=== PATIENT | female | born 1975 | race Caucasian/White ===

== ENCOUNTER 2021-12-05 16:05 | Outpatient (CLI) | payer BC ==
[2021-12-05 17:33] LABS: Free T4 (Free Thyroxine) 1.13 ng/dL (0.70-1.48); Thyroid Stimulating Hormone 1.4572 uIU/mL (0.35-4.94)
[2021-12-05 20:04] LABS: Albumin (w/Testosterone Panel) 4.2 g/dL
[2021-12-05 20:29] LABS: Sex Hormone Binding Globulin 70.6 nmol/L (34-148)
[2021-12-06 07:37] LABS: SARS-CoV-2 PCR by NAA Not Detected (NotDetected)
== END 2021-12-05 16:06 | disposition home or self-care (01) ==
LOC: CSHLAB 16:05
PROVIDERS: ATTEND Internal Medicine Gastroenterology
DX: Z01.812 Encounter for preprocedural laboratory examination (principal); Z20.822 Contact with and (suspected) exposure to COVID-19; Z12.11 Encounter for screening for malignant neoplasm of colon
CPT/HCPCS: 82627; 84270; 84403; 84439; 84443; 84481; U0003; U0005

== ENCOUNTER 2021-12-10 08:25 | Day surgery (SDC) | payer BC ==
[2021-12-04 14:32] VITALS: BMI 28.0
[2021-12-10] MEDS ORDERED: Lidocaine 1% MPF 2 ML VIAL ONE (09:52)
[2021-12-10] MEDS ORDERED: PROPOFOL 40 ML ONE (11:09)
== END 2021-12-10 12:20 | disposition home or self-care (01) ==
LOC: CSHSDC 08:25
PROVIDERS: ATTEND Internal Medicine Gastroenterology
PROC: 0DBP8ZZ Excision of Rectum, Via Natural or Artificial Opening Endoscopic (ICD-10-PCS; principal; 2021-12-10)
PROC: 0DBN8ZZ Excision of Sigmoid Colon, Via Natural or Artificial Opening Endoscopic (ICD-10-PCS; principal; 2021-12-10)
DX: Z12.11 Encounter for screening for malignant neoplasm of colon (principal); K63.5 Polyp of colon; K62.1 Rectal polyp; K64.9 Unspecified hemorrhoids; E03.9 Hypothyroidism, unspecified; I10 Essential (primary) hypertension; K21.9 Gastro-esophageal reflux disease without esophagitis; Z87.891 Personal history of nicotine dependence
CPT/HCPCS: 88305; J2704